=== PATIENT | male | born 1960 | race Caucasian/White ===

== ENCOUNTER 2016-12-07 07:28 | Emergency (ER) | payer OTHER ==
--- NOTE | 2016-12-07 08:03 | ED Physician Chart ---
Chief Complaint/HPI - Patient Information Date Seen:: 12/07/16 Time Seen:: 07:50 Chief Complaint:: abdominal pain History of Present Illness:: Patient developed right upper quadrant pain at 07 100 this morning. He vomited twice. He had no diarrhea he had no fever. This is his first episode of right upper quadrant pain similar to today's pain Allergies:: Allergies Allergy/AdvReac Type Severity Reaction Status Date / Time No Known Allergies Allergy Verified 12/07/16 07:39 Vitals:: Vital Signs - 8 hr 12/07/16 07:35 Temp 97.6 F HR 80 RR 20 BP 135/87 O2 Sat % 99 Historian:: Patient Review:: Nurse's Note Reviewed Review of Systems - Review of Systems General/Constitutional: No fever, No chills Skin: No skin lesions Head: No headache Eyes: No loss of vision ENT: No earache Neck: No neck pain Cardio Vascular: No chest pain Pulmonary: No SOB GI: Nausea, Vomiting, No diarrhea G/U: No dysuria, No frequency Musculoskeletal: No bone or joint pain, No back pain Psychiatric: No prior psych history, No depression Hematopoietic: No bruising, No lymphadenopathy Allergic/Immuno: No urticaria, No angioedema Neurological: No syncope, No headache Past Medical History - Past Medical History Past Medical History: No significant medical hx Family History: None Social History: Non Smoker, No Alcohol Surgical History: None Medication: None Family Medical History - Family Member Mother Ethnicity: Living Status: Unknown Hx Family Cancer: No Hx Family Coronary Artery Disease: No Hx Family Congestive Heart Failure: No Hx Family Hypertension: No Hx Family Stroke: No Hx Family Diabetes: No Hx Family Seizures: No Hx Family Dementia: No Hx Family AIDS: No Hx Family HIV: No Hx Family COPD: No Hx Family Hepatitis: No Hx Family Psychiatric Problems: No Hx Family Tuberculosis: No Physical Exam - Physical Examination General/Constitutional: Well-developed, well-nourished, No distress Head: Atraumatic Eyes: Lids, conjuctiva normal Skin: Nl inspection ENMT: External ears, nose nl Neck: No nuchal rigidity Respiratory: Nl effort/Exclusion, Clear to Auscultation Cardio Vascular: RRR, No murmur, gallop, rubs GI: No organomegaly, No hernia, Normal BS's, Nondistended, No mass/bruits, No McBurney tenderness Other GI comments:: Right upper quadrant tenderness : No CVA tenderness Extremities: No tenderness or effusion Neuro/Psych: Alert/oriented, No focal deficits Labs/Radiology/EKG Results - Lab Results Comments:: Laboratory Results - last 24 hr 12/07/16 12/07/16 09:35 09:35 WBC 7.5 RBC 4.53 Hgb 13.5 Hct 40.7 MCV 89.9 MCH 29.8 MCHC Differential 33.2 RDW 12.8 Plt Count 175 MPV 9.1 Neutrophils % 76.3 Lymphocytes % 16.3 L Monocytes % 6.2 Eosinophils % 0.9 Basophils % 0.3 Sodium 136 Potassium 4.2 Chloride 111 H Carbon Dioxide 25.4 Anion Gap 3.8 L BUN 18 Creatinine 1.0 Est GFR ( Amer) > 60.0 Est GFR (Non-Af Amer) > 60.0 BUN/Creatinine Ratio 18.0 Glucose 115 H Calcium 9.5 Magnesium 2.2 Lipase 23 - Radiology Results Results: Abdominal ultrasound: Possible slight sludge in gallbladder; no gallbladder stones found; no hydronephrosis - EKG Interpretations Rate & Rhythm: normal sinus rhythm with a rate of 60 [place]: normal axis Comments:: Normal EKG Assessment - Assessment General Assessment: At 1100 patient's pain was much improved; etiology of the patient's pain is uncertain what appears to be benign. ED Septic Shock - . Is Septic Shock (SBP<90, OR Lactate>4 mmol\L) present?: No - <6hrs of presentation: Vital Signs: Vital Signs - 8 hr 12/07/16 07:35 Temp 97.6 F HR 80 RR 20 BP 135/87 O2 Sat % 99 Reassessment (Disposition) - Reassessment Reassessment Condition:: Improved - Diagnosis Diagnosis:: gastritis - Aftercare/Follow up Instructions Aftercare/Follow-Up Instructions:: Refer to Discharge Instructions - Patient Disposition Discharge/Transfer:: Home Condition at Disposition:: Stable, Improved
[2016-12-07 09:46] LABS: % BASOPHILS 0.3 % (0.0-2.0); % EOSINOPHILS 0.9 % (0.0-5.0); % LYMPHOCYTES 16.3 % (20.0-50.0); % MONOCYTES 6.2 % (2.0-10.0); % NEUTROPHILS 76.3 % (40.0-80.0); HEMATOCRIT 40.7 % (39.0-49.0); HEMOGLOBIN 13.5 gm/dL (13.2-17.3); MEAN CELL VOLUME 89.9 fl (80-99); MEAN CORPUSCULAR HEMOGLOBIN 29.8 pg (26.0-30.0); MEAN CORPUSCULAR HGB CONC 33.2 pg (28.0-36.0); MEAN PLATELET VOLUME 9.1 fl; NEUTROPHILE ABSOLUTE 5.7 Th/cmm (1.8-8.0); PLATELET COUNT 175 Th/cmm (150-400); RED BLOOD COUNT 4.53 Mil/cmm (4.30-5.70); RED CELL DISTRIBUTION WIDTH 12.8 % (11.5-20.0); WHITE BLOOD COUNT 7.5 Th/cmm (4.8-10.8)
[2016-12-07 10:03] LABS: ANION GAP 3.8 (7.0-16.0); BUN - UREA NITROGEN 18 mg/dL (7-25); CALCIUM SERUM 9.5 mg/dL (8.6-10.3); CARBON DIOXIDE 25.4 mEq/L (21.0-31.0); CHLORIDE 111 mEq/L (98-107); GLUCOSE 115 mg/dL (70-105); LIPASE 23 U/L (11-82); MAGNESIUM 2.2 mg/dL (1.9-2.7); POTASSIUM SERUM 4.2 mEq/L (3.5-5.1); SODIUM SERUM 136 mEq/L (136-145)
[2016-12-07 11:02] LABS: URINE BILIRUBIN NEGATIVE (NEGATIVE); URINE BLOOD LARGE (NEGATIVE); URINE COLOR YELLOW; URINE GLUCOSE (UA) NEGATIVE (NEGATIVE); URINE KETONE NEGATIVE (NEGATIVE)
[2016-12-07 11:03] LABS: URINE PH 6.5; URINE PROTEIN TRACE mg/dL (NEGATIVE); URINE UROBILINOGEN 0.2 E.U./dL (0.2 - 1.0)
--- NOTE | 2016-12-07 11:06 | Diagnostic Imaging Report ---
Abdominal ultrasound HISTORY: Pain The liver exhibits a homogeneous parenchyma. No focal lesions. No definite calculi seen within the gallbladder. No biliary dilatation (common bile duct is 3 mm). Incomplete visualization of pancreas due to bowel gas. Kidneys appear normal bilaterally. The spleen could not be visualized. No other retroperitoneal or intra-abdominal abnormalities. IMPRESSION: 1. Limited exam due to bowel gas 2. No definite abnormalities
[2016-12-07 11:08] LABS: URINE BACTERIA NONE SEEN /hpf (NONE SEEN); URINE EPITHELIAL CELLS RARE /lpf (FEW); URINE WBC 0-2 /hpf (0-5)
== END 2016-12-07 11:10 | disposition home or self-care (01) ==
LOC: ER 07:28
DX: K29.70 Gastritis, unspecified, without bleeding (principal)
CPT/HCPCS: 99285; 96372; 93005; 76700; 84484; 36415; 85025; 81001; 83690; 83735; 80048; Q0162; J1885; J2405